=== PATIENT | male | born 1935 | race Caucasian/White ===

== ENCOUNTER → 2018-07-26 | Outpatient (CLI) | payer MEDICARE, MEDICAID ==
[~2018-07-26] MED LIST: AMLO-1 PO; ASPI-715 PO; EPIN0.3P14 IM; LOSA25TA52 PO; LOSA50TA74 PO; NIFE30TA4 PO; NIT3 PO; NITR0.4T3 SL; OXYC-865 PO; PRE20 PO
[2018-07-26 10:19] LABS: PLATELET COUNT, AUTOMATED 667 K/uL (150-450)
== END ==
LOC: LAB 09:48
PROVIDERS: ATTEND Family Medicine
DX: E03.9 Hypothyroidism, unspecified (principal); I10 Essential (primary) hypertension
CPT/HCPCS: 36415; 82040; 82247; 82310; 82374; 82435; 82465; 82565; 82947; 83718; 84075; 84132; 84155; 84295; 84443; 84450; 84460; 84478; 84520; 85025

== ENCOUNTER → 2018-08-25 | Outpatient (CLI) | payer MEDICARE, MEDICAID ==
[~2018-08-25] MED LIST changes: +CYA1000 PO; -LOSA25TA52 PO; +LOSA25TA57 PO; -LOSA50TA74 PO; +LOSA50TA80 PO
[2018-08-25 14:28] LABS: PLATELET COUNT, AUTOMATED 786 K/uL (150-450)
== END ==
LOC: LAB 14:02
PROVIDERS: ATTEND Family Medicine
DX: D64.9 Anemia, unspecified (principal); I10 Essential (primary) hypertension
CPT/HCPCS: 36415; 82465; 83718; 84478; 85025

== ENCOUNTER → 2018-09-29 | Outpatient (CLI) | payer MEDICARE, MEDICAID ==
[2018-09-29 13:32] LABS: PLATELET COUNT, AUTOMATED 750 K/uL (150-450)
== END ==
LOC: LAB 13:12
PROVIDERS: ATTEND Family Medicine
DX: R79.89 Other specified abnormal findings of blood chemistry (principal)
CPT/HCPCS: 36415; 85025